=== PATIENT | female | born 2000 | race Caucasian/White ===

== ENCOUNTER 2018-05-16 19:34 | Emergency (ER) | payer OTHER ==
[~2018-05-16] VITALS: Ht 167.6 cm; Wt 59.1 kg
[2018-05-16 19:35] VITALS: BP 116/78; TEMP 97.4
[2018-05-16] MEDS ORDERED: ZOFRAN ODT4 MG PO (20:05)
[2018-05-16 20:15] VITALS: PULSE 75
== END 2018-05-16 20:17 | disposition home or self-care (01) ==
LOC: COL.ER 19:34
DX: S09.90XA Unspecified injury of head, initial encounter (principal); W19.XXXA Unspecified fall, initial encounter; W22.8XXA Striking against or struck by other objects, initial encounter; Y92.009 Unspecified place in unspecified non-institutional (private) residence as the place of occurrence of the external cause